=== PATIENT | male | born 1950 | race Caucasian/White ===

== ENCOUNTER 2019-07-28 08:47 | Emergency (ER) | payer MEDICARE, OTHER ==
[~2019-07-28] VITALS: Ht 175.3 cm; Wt 103.7 kg
[~2019-07-28 08:47] MED LIST: ACET500C5 PO; GUAI120S25 PO; LEVO750T25 PO
[2019-07-28 08:57] VITALS: BP 130/74; PULSE 87; RESP 18; Ht 175.3 cm; Wt 103.7 kg
[2019-07-28] MEDS ORDERED: IPRATROPIUM (NEB) 0.5 MG/2.5 ML AMP NEB STA (09:52)
[2019-07-28] MEDS ORDERED: ALBUTEROL 0.083% (NEB) 2.5 MG/3 ML AMP NEB STA (09:52)
[2019-07-28] MEDS ORDERED: DEXAMETHASONE 10 MG/ML 1 ML INJ IM STA (09:52)
== END 2019-07-28 11:29 | disposition home or self-care (01) ==
LOC: FTE 08:47
DX: J18.9 Pneumonia, unspecified organism (principal)
CPT/HCPCS: 71045; 80053; 81001; 83880; 85025; 93005; 94664; 96372; 99285; J1100